=== PATIENT | male | born 1995 | race Caucasian/White ===

== ENCOUNTER 2016-10-17 12:19 | Emergency (ER) | payer BC ==
[~2016-10-17] VITALS: Ht 185.4 cm; Wt 86.5 kg
[~2016-10-17 12:19] MED LIST: IBUPROFEN600 MG PO; KEFLEX500 MG PO; NOHOMEMEDS; PERCOCET 5/31 TABLET PO; ULTRAM50 MG PO
[2016-10-17] MEDS ORDERED: MOTRIN600 MG PO (14:45)
[2016-10-17 15:32] VITALS: BP 131/74
== END 2016-10-17 15:33 | disposition home or self-care (01) ==
LOC: EME 12:19
DX: S60.221A Contusion of right hand, initial encounter (principal); W20.8XXA Other cause of strike by thrown, projected or falling object, initial encounter; Z23 Encounter for immunization; F17.200 Nicotine dependence, unspecified, uncomplicated
CPT/HCPCS: 73130; 82139 90; 99281; 99285

== ENCOUNTER 2017-02-07 12:42 | Emergency (ER) | payer BC ==
[~2017-02-07] VITALS: Ht 188 cm; Wt 82.7 kg
[~2017-02-07 12:42] MED LIST changes: +MOTRIN600 MG PO
[2017-02-07 12:47] VITALS: BP 142/85
== END 2017-02-07 13:39 | disposition home or self-care (01) ==
LOC: EME 12:42
PROC: 0HQKXZZ Repair Right Lower Leg Skin, External Approach (ICD-10-PCS; principal; 2017-02-07)
DX: S81.811A Laceration without foreign body, right lower leg, initial encounter (principal); S81.831A Puncture wound without foreign body, right lower leg, initial encounter; W45.8XXA Other foreign body or object entering through skin, initial encounter; W22.8XXA Striking against or struck by other objects, initial encounter; Y93.55 Activity, bike riding; F17.200 Nicotine dependence, unspecified, uncomplicated
CPT/HCPCS: 99281; 99284

== ENCOUNTER 2018-02-06 18:32 | Emergency (ER) | payer SELFPAY ==
[~2018-02-06] VITALS: Ht 182.9 cm; Wt 89.3 kg
[2018-02-06] MEDS ORDERED: MOTRIN800 MG PO (21:27)
[2018-02-06 21:33] VITALS: BP 129/70
== END 2018-02-06 21:40 | disposition home or self-care (01) ==
LOC: EME 18:32 → RME 18:32
DX: S63.91XA Sprain of unspecified part of right wrist and hand, initial encounter (principal); W22.09XA Striking against other stationary object, initial encounter; F17.200 Nicotine dependence, unspecified, uncomplicated
CPT/HCPCS: 73130; 99281; 99284